=== PATIENT | female | born 1975 | race Caucasian/White ===

== ENCOUNTER 2016-08-17 07:50 | Emergency (ER) | payer SELFPAY | END 2016-08-17 08:18 | disposition home or self-care (01) | LOC: D.ER 07:50 | DX: K02.9 Dental caries, unspecified (principal); K08.89 Other specified disorders of teeth and supporting structures; J45.909 Unspecified asthma, uncomplicated; F32.9 Major depressive disorder, single episode, unspecified; F17.200 Nicotine dependence, unspecified, uncomplicated; Z85.42 Personal history of malignant neoplasm of other parts of uterus ==

== ENCOUNTER 2016-09-08 10:51 | Emergency (ER) | payer SELFPAY ==
[2016-09-08 12:05] LABS: BASOPHILS 0.3 % (0-2); EOSINOPHILS 1.4 % (0-7); HEMATOCRIT 44.1 % (36.0-48.0); HEMOGLOBIN 13.7 g/dL (12-16); IMMATURE GRANULOCYTES 0.1 % (0-5); LYMPHOCYTES 23.4 % (15-50); MCH 25.3 pg (26.0-34.0); MCHC 31.1 g/dL (31.0-37.0); MCV 81.5 fL (80.0-100.0); MEAN PLATELET VOLUME 10.2 fL (7.4-10.4); MONOCYTES 6.7 % (2-11); NEUTROPHILS 68.1 % (40-80); PLATELET COUNT 316 10x3/uL (130-400); RBC 5.41 10x6/uL (4.00-5.40); RDW 15.9 % (11.5-14.5); WBC 10.4 10x3/uL (4.8-10.8)
[2016-09-08 12:30] LABS: ALBUMIN 3.6 g/dL (3.4-5.0); ALKALINE PHOSPHATASE 82 U/L (46-116); ALT (SGPT) 25 U/L (10-68); BILIRUBIN - TOTAL 0.22 mg/dL (0.2-1.3); CALC OSMOLALITY 277 mosm/kg (275-300); CALCIUM 9.3 mg/dL (8.5-10.1); CARBON DIOXIDE 29.4 mmol/L (21.0-32.0); CHLORIDE - SERUM 104 mmol/L (98-107); CREATININE - SERUM 0.7 mg/dL (0.6-1.3); GLUCOSE 114 mg/dL (74-106); POTASSIUM - SERUM 4.4 mmol/L (3.5-5.1); PROTEIN - SERUM 7.7 g/dL (6.4-8.2); SODIUM 140 mmol/L (136-145); UREA NITROGEN 8 mg/dL (7-18); eGFR NON AFRICAN AMERICAN > 90 mL/min (90-120)
[2016-09-08 12:47] LABS: APPEARANCE CLOUDY (CLEAR); BACTERIA FEW /hpf (NONE SEEN); BILIRUBIN NEGATIVE (NEGATIVE); COLOR YELLOW (YELLOW); EPITHELIAL CELLS 0-5 /hpf (0-5); GLUCOSE NEGATIVE (NEGATIVE); KETONE NEGATIVE (NEGATIVE); LEUKOCYTE ESTERASE TRACE (NEGATIVE); NITRITE NEGATIVE (NEGATIVE); PROTEIN NEGATIVE (NEGATIVE); RED CELLS - URINE >50 /hpf (0-5); SPECIFIC GRAVITY 1.005 (1.005-1.020); UROBILINOGEN NORMAL (NORMAL); WHITE CELLS - URINE 0-5 /hpf (0-5)
[2016-09-08 13:56] LABS: CREATINE KINASE 66 UL (21-215); MAGNESIUM - SERUM 2.2 mg/dL (1.8-2.4); PRO BNP 263 pg/mL (0-125)
[2016-09-08 14:03] LABS: TROPONIN-I < 0.017 ng/mL (0.000-0.060)
== END 2016-09-08 14:10 | disposition home or self-care (01) ==
LOC: D.ER 10:51
PROVIDERS: Emergency Medicine
DX: R55 Syncope and collapse (principal); F17.200 Nicotine dependence, unspecified, uncomplicated; R06.00 Dyspnea, unspecified